=== PATIENT | female | born 1950 | race African-American/Black ===

== ENCOUNTER 2023-07-11 19:55 | Inpatient (IN) | payer MEDICARE ==
[2023-07-11 22:08] LABS: #Eosinphils 0.1 10x3/uL (0.0-0.5); #Monocytes 1.2 10x3/uL (0.0-1.1); #Neutrophils 5.1 10x3/uL (1.5-8.4); %Basophils 0.3 % (0.0-2.0); %Eosinophils 0.5 % (0.0-6.0); %Lymphocytes 31.2 % (18.0-47.0); %Monocytes 12.7 % (0.0-10.0); %Neutrophils 54.7 % (40.0-75.0); Hematocrit 27.2 % (34.9-44.5); Hemoglobin 8.7 g/dL (12.0-15.5); Mean Corpuscular Hemoglobin 28.4 pg (27.0-33.0); Mean Corpuscular Volume 88.9 fl (81.6-98.3); Mean Platelet Volume 8.9 fl (7.4-10.4); Platelet Count 477 10x3/uL (150-450); RBC Distribution Width 15.1 % (11.5-14.5); Red Blood Cell (RBC) Count 3.06 10x6/uL (3.90-5.03); White Blood Cell (WBC) Count 9.3 10x3/uL (3.5-10.5)
[2023-07-11 22:26] LABS: ALT (SGPT) Less than 7 U/L (8-55); AST (SGOT) 12 U/L (5-34); Albumin 3.4 g/dL (3.4-4.8); Alkaline Phosphatase 105 U/L (40-110); Anion Gap 14 mmol/L (10-20); BUN (Urea Nitrogen) 20 mg/dL (9.8-20.1); Bilirubin, Total 0.3 mg/dL (0.2-1.2); Calc. Creatinine Clearance 0 mL/min (70-130); Calcium 9.2 mg/dL (7.8-10.44); Carbon Dioxide 18 mmol/L (23-31); Chloride 109 mmol/L (98-107); Estimated GFR 49; Globulin 3.2 g/dL (2.4-3.5); Glucose 103 mg/dL (83-110); Potassium 4.7 mmol/L (3.5-5.1); Protein, Total 6.6 g/dL (5.8-8.1); Sodium 136 mmol/L (136-145)
[2023-07-11 22:32] LABS: Troponin I 0.078 ng/mL (< 0.028)
[2023-07-11] MEDS ORDERED: Heparin 25,000 units/D5W 500 ML ONE (23:28)
[2023-07-11 23:41] LABS: PTT 27.6 sec (22.0-33.0); Prothrombin Time 10.8 sec (9.5-12.1)
[2023-07-12] MEDS ORDERED: Senokot S 8.6-50 MG TAB PO PRN (05:34)
[2023-07-12] MEDS ORDERED: Ondansetron PF 4 MG/2 ML Vial IVP PRN (05:34)
[2023-07-12] MEDS ORDERED: Acetaminophen 325 MG TAB PO PRN (05:34)
[2023-07-12] MEDS ORDERED: Calcium Carbonate 500 MG ChewTAB PO PRN (05:34)
[2023-07-12] MEDS ORDERED: Diazepam 2 MG TAB PO PRN (05:36)
[2023-07-12 05:42] LABS: Troponin I 0.282 ng/mL (< 0.028)
[2023-07-12] MEDS ORDERED: Heparin 10,000 UNITS/ 10 ML VIAL SLOW IVP SCH ×2 (05:45→06:15)
[2023-07-12] MEDS ORDERED: Heparin 25,000 units/D5W 500 ML IVPB SCH (05:45)
[2023-07-12] MEDS ORDERED: Heparin 25,000 units/D5W 500 ML IV SCH (06:15)
[2023-07-12 07:53] LABS: Hematocrit 27.2 % (34.9-44.5); Hemoglobin 9.2 g/dL (12.0-15.5); Platelet Count 459 10x3/uL (150-450)
[2023-07-12] MEDS: Nortriptyline HCl 25 MG CAP PO SCH (09:03)
[2023-07-12] MEDS: metroNIDAZOLE 500 MG TAB PO SCH (09:03)
[2023-07-12] MEDS: Baclofen 10 MG TAB PO SCH (09:03)
[2023-07-12] MEDS: Ascorbic Acid 500 mg Chewable Tablet PO SCH (09:03)
[2023-07-12] MEDS: Metoprolol Tartrate 25 MG TAB PO SCH (09:03)
[2023-07-12] MEDS: LevoFLOXacin 500 MG TAB PO SCH (09:04)
[2023-07-12] MEDS: busPIRone HCl 15 MG TAB PO SCH (09:05)
[2023-07-12] MEDS: HYDROcodone/Acetaminophen 5/325 mg Tablet PO PRN (09:43)
[2023-07-12 13:04] LABS: Critical Call Chem Troponin I NUR.GC2 AT 13:00; Troponin I 0.323 ng/mL (< 0.028)
[2023-07-12] MEDS: Heparin 10,000 UNITS/ 10 ML VIAL SLOW IVP SCH (14:07)
[2023-07-12] MEDS: Apixaban 5 MG TAB PO SCH ×2 (14:17→15:42)
[2023-07-12] MEDS ORDERED: Iopamidol 370 76% 100 ML VIAL ONE (14:37)
[2023-07-12] MEDS: Lactated Ringer's 500 ML IV SCH (16:20)
[2023-07-12] MEDS: Ferrous Sulfate 325 MG TAB PO SCH (16:22)
[2023-07-12 18:34] LABS: #Eosinphils 0.1 10x3/uL (0.0-0.5); #Monocytes 1.4 10x3/uL (0.0-1.1); #Neutrophils 5.5 10x3/uL (1.5-8.4); %Basophils 0.4 % (0.0-2.0); %Eosinophils 0.7 % (0.0-6.0); %Lymphocytes 28.6 % (18.0-47.0); %Monocytes 13.7 % (0.0-10.0); %Neutrophils 55.7 % (40.0-75.0); Hematocrit 28.2 % (34.9-44.5); Hemoglobin 9.1 g/dL (12.0-15.5); Mean Corpuscular HGB CONC 32.3 g/dL (32.0-36.0); Mean Corpuscular Hemoglobin 28.3 pg (27.0-33.0); Mean Corpuscular Volume 87.6 fl (81.6-98.3); Mean Platelet Volume 9.7 fl (7.4-10.4); Platelet Count 390 10x3/uL (150-450); RBC Distribution Width 15.3 % (11.5-14.5); Red Blood Cell (RBC) Count 3.22 10x6/uL (3.90-5.03); White Blood Cell (WBC) Count 9.9 10x3/uL (3.5-10.5)
[2023-07-12] MEDS: Amlodipine 5 MG TAB PO SCH (20:27)
[2023-07-12] MEDS: Escitalopram Oxalate 20 mg Tablet PO SCH (20:28)
[2023-07-12] MEDS: Atorvastatin Calcium 40 MG TAB PO SCH (20:28)
[2023-07-13 05:58] LABS: #Eosinphils 0.1 10x3/uL (0.0-0.5); #Monocytes 0.8 10x3/uL (0.0-1.1); %Basophils 0.4 % (0.0-2.0); %Eosinophils 0.8 % (0.0-6.0); %Lymphocytes 31.3 % (18.0-47.0); %Monocytes 11.5 % (0.0-10.0); %Neutrophils 55.2 % (40.0-75.0); Anion Gap 13 mmol/L (10-20); BUN (Urea Nitrogen) 18 mg/dL (9.8-20.1); Calc. Creatinine Clearance 70 mL/min (70-130); Calcium 9.5 mg/dL (7.8-10.44); Carbon Dioxide 20 mmol/L (23-31); Chloride 109 mmol/L (98-107); Estimated GFR 58; Glucose 104 mg/dL (83-110); Hematocrit 26.7 % (34.9-44.5); Hemoglobin 8.7 g/dL (12.0-15.5); Mean Corpuscular HGB CONC 32.6 g/dL (32.0-36.0); Mean Platelet Volume 9.2 fl (7.4-10.4); Platelet Count 456 10x3/uL (150-450); Potassium 5.1 mmol/L (3.5-5.1); RBC Distribution Width 15.4 % (11.5-14.5); Sodium 137 mmol/L (136-145); White Blood Cell (WBC) Count 7.3 10x3/uL (3.5-10.5)
[2023-07-13] MEDS: LevoFLOXacin 500 MG TAB PO SCH (09:53)
[2023-07-13] MEDS: Diazepam 5 MG TAB PO PRN (10:56)
[2023-07-14 06:59] LABS: Hemoglobin 8.8 g/dL (12.0-15.5); Platelet Count 436 10x3/uL (150-450)
[2023-07-14] MEDS: Amlodipine 5 MG TAB PO SCH (08:41)
[2023-07-16 04:06] LABS: #Basophils 0.1 10x3/uL (0.0-0.2); #Eosinphils 0.1 10x3/uL (0.0-0.5); #Monocytes 0.9 10x3/uL (0.0-1.1); #Neutrophils 4.1 10x3/uL (1.5-8.4); %Basophils 0.6 % (0.0-2.0); %Eosinophils 0.6 % (0.0-6.0); %Lymphocytes 36.4 % (18.0-47.0); %Monocytes 11.2 % (0.0-10.0); %Neutrophils 50.7 % (40.0-75.0); Hematocrit 27.2 % (34.9-44.5); Mean Corpuscular HGB CONC 33.1 g/dL (32.0-36.0); Mean Corpuscular Hemoglobin 29.2 pg (27.0-33.0); Mean Corpuscular Volume 88.3 fl (81.6-98.3); Mean Platelet Volume 9.3 fl (7.4-10.4); Platelet Count 438 10x3/uL (150-450); RBC Distribution Width 15.7 % (11.5-14.5); Red Blood Cell (RBC) Count 3.08 10x6/uL (3.90-5.03); White Blood Cell (WBC) Count 8.2 10x3/uL (3.5-10.5)
[2023-07-16 04:13] LABS: Anion Gap 14 mmol/L (10-20); BUN (Urea Nitrogen) 23 mg/dL (9.8-20.1); Calc. Creatinine Clearance 60 mL/min (70-130); Calcium 9.6 mg/dL (7.8-10.44); Carbon Dioxide 16 mmol/L (23-31); Chloride 110 mmol/L (98-107); Estimated GFR 49; Glucose 104 mg/dL (83-110); Potassium 4.8 mmol/L (3.5-5.1); Sodium 135 mmol/L (136-145)
[2023-07-16 12:20] VITALS: BP 105/56; TEMP 98.3
[2023-07-19] MEDS ORDERED: Apixaban 5 MG TAB PO SCH (09:00)
== END 2023-07-16 14:02 | DRG 300 ==
LOC: CSHERS 19:55 → CSHTELE 07-12 05:03
PROVIDERS: ADMIT Student in an Organized Health Care Education/Training Program; ATTEND Internal Medicine
PROC: 5A09457 Assistance with Respiratory Ventilation, 24-96 Consecutive Hours, Continuous Positive Airway Pressure (ICD-10-PCS; principal; 2023-07-13)
DX: I82.411 Acute embolism and thrombosis of right femoral vein (principal); K91.871 Postprocedural hematoma of a digestive system organ or structure following other procedure; E78.5 Hyperlipidemia, unspecified; F32.A Depression, unspecified; I10 Essential (primary) hypertension; E86.0 Dehydration; D64.9 Anemia, unspecified; R77.8 Other specified abnormalities of plasma proteins; Z87.891 Personal history of nicotine dependence; Z90.49 Acquired absence of other specified parts of digestive tract; Z74.01 Bed confinement status; Z98.890 Other specified postprocedural states; Z79.899 Other long term (current) drug therapy; Z88.8 Allergy status to other drugs, medicaments and biological substances; Z93.2 Ileostomy status
CPT/HCPCS: 36415; 71275; 80048; 80053; 83605; 84484; 85014; 85018; 85025; 85049; 85610; 85730; 93005; 93306; 96365; 96366; 96376; J1644; J7120; Q9967

== ENCOUNTER 2025-01-31 09:33 | Outpatient (CLI) | payer OTHER | END 2025-01-31 09:34 | disposition home or self-care (01) | LOC: CSHSLEEP 09:33 | PROVIDERS: ATTEND Family Medicine | DX: G47.33 Obstructive sleep apnea (adult) (pediatric) (principal); R09.89 Other specified symptoms and signs involving the circulatory and respiratory systems; R41.89 Other symptoms and signs involving cognitive functions and awareness; F32.A Depression, unspecified; R06.83 Snoring | CPT/HCPCS: 95811 ==